=== PATIENT | male | born 1965 ===

== ENCOUNTER 2024-11-30 06:03 | Day surgery (SDC) | payer OTHER ==
[2024-11-22 11:28] VITALS: BP 160/99
[~2024-11-30] VITALS: Ht 188 cm; Wt 99.8 kg
[~2024-11-30 06:03] MED LIST: LIPITOR20 MG; ZESTRIL20 MG PO
[2024-11-30] MEDS ORDERED: CEFTRIAXONE SODIUM 2,000 MG VIAL ONE (08:10)
[2024-11-30] MEDS ORDERED: METRONIDAZOLE/SODIUM CHLORIDE 500 MG/100 ML PIGGYBACK IV ONE (08:10)
[2024-11-30] MEDS ORDERED: DIBUCAINE 30 GM TUBE ONE (08:17)
[2024-11-30] MEDS ORDERED: HEMOSTATIC MATRIX 1 KIT KIT TOP ONE (08:17)
[2024-11-30] MEDS ORDERED: POVIDONE-IODINE 118 ML BOTT TOP ONE (08:17)
[2024-11-30] MEDS ORDERED: LIDOCAINE HCL 1%/EPINEPHRINE 20ML VIAL IJ ONE (08:18)
[2024-11-30] MEDS ORDERED: MORPHINE SULFATE 4 MG/ML VIAL IV ONE (14:05)
[2024-11-30] MEDS ORDERED: NEURONTIN300 MG PO (14:40)
[2024-11-30] MEDS ORDERED: A/F PAIN RELIE500 MG PO (14:40)
== END 2024-11-30 15:20 | disposition home or self-care (01) ==
LOC: CIR.AMB 06:03
PROVIDERS: ATTEND Surgery
DX: D12.9 Benign neoplasm of anus and anal canal (principal); I10 Essential (primary) hypertension; Z88.6 Allergy status to analgesic agent; E78.5 Hyperlipidemia, unspecified